=== PATIENT | female | born 1980 ===

== ENCOUNTER 2018-04-21 19:39 | Emergency (ER) | payer OTHER ==
[~2018-04-21] VITALS: Ht 165.1 cm; Wt 62.1 kg
[~2018-04-21 19:39] MED LIST: ATENOLOL25 MG; LEVOTHYROXINE; TYLENOL-CODEINE1 TAB PO
== END 2018-04-21 22:52 | disposition home or self-care (01) ==
LOC: ER 19:39
DX: S00.83XA Contusion of other part of head, initial encounter (principal); W18.39XA Other fall on same level, initial encounter; Y93.89 Activity, other specified; Y92.091 Bathroom in other non-institutional residence as the place of occurrence of the external cause; Y99.8 Other external cause status

== ENCOUNTER 2018-07-03 09:54 | Emergency (ER) | payer OTHER ==
[~2018-07-03] VITALS: Ht 165.1 cm; Wt 61.7 kg
[2018-07-03] MEDS ORDERED: ENALAPRIL MALEAT5 MG PO (10:33)
== END 2018-07-03 14:00 | disposition home or self-care (01) ==
LOC: ER 09:54
DX: M54.2 Cervicalgia (principal)